=== PATIENT | female | born 1995 | race Hispanic/Latino ===

== ENCOUNTER 2018-11-23 17:33 | Emergency (ER) | payer BC ==
[~2018-11-23] VITALS: Ht 152.4 cm; Wt 65.8 kg
--- NOTE | 2018-11-23 18:40 | Diagnostic Imaging Report ---
Exam: Left ankle 3 views History: Pain Comparison: None. Findings: No displaced fracture or malalignment. Joint spaces preserved. Soft tissue swelling. Impression: No acute osseous abnormality Soft tissue swelling without displaced fracture. Signed by: Dr. Nicola Montilla M.D. on 11/23/2018 6:37 PM
== END 2018-11-23 19:13 | disposition home or self-care (01) ==
LOC: FSED 17:33
DX: S93.492A Sprain of other ligament of left ankle, initial encounter (principal); X50.1XXA Overexertion from prolonged static or awkward postures, initial encounter; Y92.488 Other paved roadways as the place of occurrence of the external cause
CPT/HCPCS: 99283

== ENCOUNTER 2021-10-09 19:52 | Emergency (ER) | payer SELFPAY ==
[~2021-10-09] VITALS: Ht 180.3 cm; Wt 65.8 kg
[2021-10-09 20:16] LABS: CLARITY,URINE SL CLOUDY (CLEAR); COLOR,URINE YELLOW (YELLOW); KETONES,URINE 1+ (NEGATIVE); LEUKOCYTE ESTERASE ,URINE NEGATIVE (NEGATIVE); NITRITE,URINE NEGATIVE (NEGATIVE); PROTEIN,URINE DIPSTICK NEGATIVE (NEGATIVE); URINE UROBILINOGEN 0.2 mg/dL (0.2 - 1)
[2021-10-09 20:29] LABS: BACTERIA,URINE MANY /HPF; EPITHELIAL CELLS,URINE MANY /LPF; RBC,URINE 0-5 /HPF (0-5)
== END 2021-10-09 21:31 | disposition home or self-care (01) ==
LOC: ER 20:04
DX: R10.32 Left lower quadrant pain (principal); K59.00 Constipation, unspecified; F17.210 Nicotine dependence, cigarettes, uncomplicated
CPT/HCPCS: 74018; 81001; 81025; 99283

== ENCOUNTER 2021-10-28 21:49 | Emergency (ER) | payer BC ==
[~2021-10-28] VITALS: Ht 180.3 cm; Wt 65.8 kg
[2021-10-28] MEDS ORDERED: VENTOLIN HFA18 GM INH (22:24)
[2021-10-28] MEDS ORDERED: PREDNISONE20 MG PO (22:24)
== END 2021-10-28 22:40 | disposition home or self-care (01) ==
LOC: ER 21:59
DX: R07.89 Other chest pain (principal); R06.02 Shortness of breath; J45.909 Unspecified asthma, uncomplicated
CPT/HCPCS: 93005; 99283

== ENCOUNTER 2024-04-13 21:22 | Emergency (ER) | payer BC ==
[~2024-04-13 21:22] MED LIST: PREDNISONE20 MG PO; VENTOLIN HFA18 GM INH
== END 2024-04-13 21:57 | disposition short-term general hospital (02) ==
LOC: FSED 21:57
DX: S39.91XA Unspecified injury of abdomen, initial encounter (principal)